=== PATIENT | male | born 1950 | race Caucasian/White ===

== ENCOUNTER → 2020-06-06 | Outpatient (CLI) | payer MEDICARE ==
--- NOTE | 2020-06-30 08:55 | REP ---
RIGHT ANKLE CLINICAL: Trauma. Fall. TECHNIQUE: AP, lateral, and bilateral oblique of the right ankle. FINDINGS: Soft tissue swelling is appreciated primarily over the lateral malleolus and a small avulsion fracture at the fibular tip cannot be excluded. No further acute fracture or dislocation appreciated. Ankle mortise intact. IMPRESSION: Soft tissue swelling. Possible small avulsion fracture off the fibular tip. MTDD
== END ==
LOC: M WUC 11:44
PROVIDERS: ATTEND Nurse Practitioner Family
DX: M25.571 Pain in right ankle and joints of right foot (principal); M79.89 Other specified soft tissue disorders